=== PATIENT | female | born 1990 | race Caucasian/White ===

== ENCOUNTER 2023-02-22 19:57 | Emergency (ER) | payer SELFPAY | END 2023-02-22 20:58 | disposition home or self-care (01) | LOC: JP.ED 19:57 | DX: S90.561A Insect bite (nonvenomous), right ankle, initial encounter (principal); W57.XXXA Bitten or stung by nonvenomous insect and other nonvenomous arthropods, initial encounter | CPT/HCPCS: 99281 ==